=== PATIENT | female | born 1985 | race Caucasian/White ===

== ENCOUNTER 2020-11-24 21:35 | Emergency (ER) | payer OTHER, MEDICAID ==
[~2020-11-24] VITALS: Ht 162.6 cm; Wt 90.7 kg
[2020-11-24] MEDS ORDERED: ZOLOFT PO (21:39)
[2020-11-24] MEDS ORDERED: ADDERALL 30 MG30 MG (21:39)
[2020-11-24] MEDS ORDERED: TRILEPTAL (21:40)
[2020-11-24] MEDS ORDERED: NEURONTIN (21:40)
[2020-11-24] MEDS ORDERED: XANAX (21:40)
[2020-11-24 22:59] LABS: URINE CLARITY SL CLOUDY; URINE COLOR ORANGE; URINE SPECIFIC GRAVITY 1.025 (1.005-1.030)
[2020-11-24 23:07] LABS: URINE GLUCOSE-RANDOM ND (Negative); URINE PROTEIN ND (Negative); URINE REDUCING SUBSTANCE NEGATIVE (Negative)
[2020-11-24 23:08] LABS: ACETEST (KETONE CONFIRMATORY) Negative (Negative); ICTOTEST (BILI CONFIRMATORY) Negative (Negative); URINE BILIRUBIN ND (Negative); URINE BLOOD ND (Negative); URINE KETONES ND (Negative); URINE UROBILINOGEN ND E.U./dl (0.2-1.0)
[2020-11-24 23:09] LABS: URINE LEUKOCYTES-REFLEX ND (Negative); URINE NITRITE-REFLEX ND (Negative)
[2020-11-24 23:31] LABS: CASTS None Seen /LPF (None Seen); MUCUS 4-6 Moderate strn/LPF (None Seen); SQUAMOUS >10 Many /LPF (0-3); URINE WBC-REFLEX >25 Many /HPF (0-5)
[2020-11-24 23:32] LABS: BACTERIA-REFLEX >30 Many /HPF (None Seen); CRYSTALS None Seen /LPF (None Seen); URINE RBC >20 Many /HPF (0-2)
[2020-11-24] MEDS ORDERED: DOXYCYCLINE 10100 M2 PO (23:43)
[2020-11-24] MEDS ORDERED: IBUPROFEN 800800 MG PO (23:43)
[2020-11-25 00:04] VITALS: BP 155/84
== END 2020-11-25 00:04 | disposition home or self-care (01) ==
LOC: M.ERS 21:35
PROVIDERS: Emergency Medicine
DX: N39.0 Urinary tract infection, site not specified (principal); N76.0 Acute vaginitis; B96.89 Other specified bacterial agents as the cause of diseases classified elsewhere; F41.9 Anxiety disorder, unspecified; F32.9 Major depressive disorder, single episode, unspecified; Z79.899 Other long term (current) drug therapy; Z88.0 Allergy status to penicillin